=== PATIENT | male | born 1935 | race Caucasian/White ===

== ENCOUNTER 2017-12-12 09:46 | Outpatient (CLI) | payer MEDICARE ==
--- NOTE | 2017-12-12 12:34 | MRI ---
MRI LUMBAR SPINE WITHOUT CONTRAST: HISTORY: Left-sided sciatica. Low back pain x several years. COMPARISON: None. TECHNIQUE: MRI of the lumbar spine is performed without intravenous Gadolinium administration. Multisequential, multiplanar imaging is performed. FINDINGS: Evaluation is limited by motion degradation on multiple sequences. Symmetric signal intensity of the psoas muscles. 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 Overall, there is appropriate T1 marrow signal intensity of the lumbar vertebrae. Slightly heterogen eous marrow signal intensity of the anterior superior aspect of L2 likely represents a small vertebra l body hemangioma. No evidence of fracture. No significant STIR hyperintensity to suggest ligamento us injury. There is evidence of type I Modic change involving the left inferior end plate at L1, sup erior left end plate at L2, as well as edema involving the posterior elements on the left at L1 and L 2. Conus medullaris terminates at the superior aspect of L1. T12-L1: No significant central canal stenosis. Moderate right neural foramen is patent. Probable m oderate left foraminal narrowing. L1-L2: Mild disk desiccation without significant loss of disk space height or significant posterior disk abnormality. No significant central canal stenosis. Neural foramen appear to be patent bilater ally. L2-L3: Mild loss of disk space height. Generalized disk bulge with left paracentral component. Dis k material abuts but does not obscure the traversing left L2 nerve root. Mild posterior element hype rtrophy. Overall mild central canal stenosis. Mild right and mild to moderate left foraminal narrow ing. L3-L4: Desiccation without significant loss of disk space height. Small right paracentral disk bulg e. Disk material abuts but does not completely obscure the traversing left L4 nerve root. There is mild ligamentum flavum thickening and facet hypertrophy. A small amount of fluid in both intraarticu lar facet joints. No significant central canal stenosis. Neural foramen are patent bilaterally. L4-L5: Desiccation without significant loss of disk space height. There is a generalized disk bulge without significant central canal stenosis. A small amount of fluid in both intraarticular facet christy ints. Mild to moderate right and minimal left foraminal narrowing. L5-S1: Disk desiccation with moderate loss of disk space height. Generalized disk bulge narrows bot h subarticular zones. Mass effect without obscuration of either traversing S1 nerve root. Mild cent ral canal stenosis. There is bilateral facet hypertrophy, right greater than left. Mild bilateral f oraminal narrowing. 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 POS: OFF
== END 2017-12-12 09:47 | disposition home or self-care (01) ==
LOC: TBSIIMAG 09:46 → EDBD 11:00
PROVIDERS: ATTEND Family Medicine
DX: M54.32 Sciatica, left side (principal); M47.896 Other spondylosis, lumbar region
CPT/HCPCS: 72148

== ENCOUNTER 2020-12-12 13:47 | Inpatient (IN) | payer MEDICARE ==
[2020-12-12] MEDS ORDERED: Pantoprazole 40 MG VIAL ONE (16:28)
[2020-12-12 16:29] LABS: #Eosinphils 0.2 thou/uL (0.0-0.7); #Lymphocytes 1.1 thou/uL (1.20-3.40); #Monocytes 0.8 thou/uL (0.11-0.59); #Neutrophils 7.9 thou/uL (1.40-6.50); %Basophils 0.1 % (0.0-1.0); %Eosinophils 1.6 % (0.0-10.0); %Lymphocytes 11.2 % (21.0-51.0); %Monocytes 7.7 % (0.0-10.0); %Neutrophils 79.4 % (42.0-75.0); Hemoglobin 10.7 g/dL (14.0-18.0); Mean Corpuscular HGB CONC 33.5 g/dL (32.0-36.0); Mean Corpuscular Hemoglobin 33.7 pg (27.0-31.0); Mean Platelet Volume 9.1 fL (7.4-10.4); Platelet Count 147 thou/uL (130-400); RBC Distribution Width 13.9 % (11.5-14.5); Red Blood Cell (RBC) Count 3.17 mill/uL (4.70-6.10); White Blood Cell (WBC) Count 9.9 thou/uL (4.8-10.8)
[2020-12-12 16:36] LABS: INR-International Normal Ratio 3.2; Prothrombin Time 33.4 sec (12.0-14.7)
[2020-12-12 16:37] LABS: D-Dimer Test 0.8 *mcg/mL (0.27-0.43); PTT 61.1 sec (22.9-36.1)
[2020-12-12] MEDS ORDERED: Furosemide 40 MG/4 ML VIAL ONE (17:07)
[2020-12-12 17:15] LABS: CKMB 5.3 ng/mL (0-6.6)
[2020-12-12 17:43] LABS: Troponin I 0.095 ng/mL (< 0.028)
[2020-12-12] MEDS ORDERED: Ondansetron ODT 4 MG TAB PO PRN (17:52)
[2020-12-12] MEDS ORDERED: Ondansetron PF 4 MG/2 ML Vial IVP PRN (17:52)
[2020-12-12 18:34] LABS: ALT (SGPT) 26 U/L (8-55); AST (SGOT) 37 U/L (5-34); Albumin 2.9 g/dL (3.4-4.8); Alkaline Phosphatase 107 U/L (40-110); Anion Gap 12 mmol/L (10-20); BUN (Urea Nitrogen) 28 mg/dL (8.4-25.7); Calc. Creatinine Clearance 0 mL/min (70-130); Calcium 8.4 mg/dL (7.8-10.44); Carbon Dioxide 23 mmol/L (23-31); Chloride 105 mmol/L (98-107); Globulin 3.4 g/dL (2.4-3.5); Glucose 93 mg/dL (83-110); Lipase 44 U/L (8-78); Potassium 3.4 mmol/L (3.5-5.1); Protein, Total 6.3 g/dL (5.8-8.1); Sodium 137 mmol/L (136-145)
[2020-12-12 20:25] LABS: Troponin I 0.089 ng/mL (< 0.028)
[2020-12-12] MEDS: Pregabalin 50 MG CAP PO SCH (20:49)
[2020-12-12] MEDS: Atorvastatin Calcium 40 MG TAB PO SCH (20:49)
[2020-12-12] MEDS: HYDROcodone/Acetaminophen 5/325 mg Tablet PO PRN (23:46)
[2020-12-13 04:53] LABS: INR-International Normal Ratio 3.8; Prothrombin Time 38.5 sec (12.0-14.7)
[2020-12-13] MEDS: Acetaminophen 325 MG TAB PO PRN (04:54)
[2020-12-13] MEDS: Furosemide 40 MG/4 ML VIAL SLOW IVP SCH ×2 (05:04→14:57)
[2020-12-13 05:10] LABS: Anion Gap 15 mmol/L (10-20); BUN (Urea Nitrogen) 25 mg/dL (8.4-25.7); Calc. Creatinine Clearance 36 mL/min (70-130); Calcium 8.2 mg/dL (7.8-10.44); Carbon Dioxide 21 mmol/L (23-31); Chloride 104 mmol/L (98-107); Glucose 92 mg/dL (83-110); Potassium 3.5 mmol/L (3.5-5.1); Sodium 136 mmol/L (136-145)
[2020-12-13 05:17] LABS: Hemoglobin 10.5 g/dL (14.0-18.0); Mean Corpuscular HGB CONC 35.3 g/dL (32.0-36.0); Mean Corpuscular Hemoglobin 35.3 pg (27.0-31.0); Mean Corpuscular Volume 99.9 fL (78.0-98.0); Mean Platelet Volume 9.3 fL (7.4-10.4); Platelet Count 155 thou/uL (130-400); RBC Distribution Width 14.6 % (11.5-14.5); Red Blood Cell (RBC) Count 2.98 mill/uL (4.70-6.10); White Blood Cell (WBC) Count 12.4 thou/uL (4.8-10.8)
[2020-12-13 05:18] LABS: Band 48 % (5-11); Eosinophils 1 % (0-10); Lymphocytes 8 % (21-51); MDiff Complete? YES; Monocytes 2 % (0-10); Neutrophil 41 % (42-75); Platelet Morphology Comment Appears Adequate; Reflex for Review?? NO
[2020-12-13] MEDS: Allopurinol 300 MG TAB PO SCH (09:40)
[2020-12-13] MEDS: Pregabalin 50 MG CAP PO SCH ×2 (09:40→20:23)
[2020-12-13] MEDS: HYDROcodone/Acetaminophen 5/325 mg Tablet PO PRN (13:07)
[2020-12-13] MEDS: Metoprolol Tartrate 5 MG/5 ML VIAL IVP PRN (13:11)
[2020-12-13 14:43] LABS: Actual Bicarbonate (HCO3a) 24.9 mEq/L (22-28); Base Excess (BEa) 3.2 mEq/L (-2.0 to +3.0); Calcium, Ionized (arterial) 1.06 mmol/L (1.12-1.30); Carboxyhemoglobin (COHb) 0.3 gm% (0.0-3.0); Hemoglobin (Hb) 11.7 g/dL (14.0-18.0); Potassium - ABG Lab 3.06 mmol/L (3.70-5.30)
[2020-12-13 14:53] LABS: O2 Tension (PaO2), arterial 56.6 mmHg (> 60.0); Puncture Site RRA; pH, Arterial 7.55 (7.35-7.45)
[2020-12-13] MEDS: cefTRIAXone\\ROCEPHIN 1 GM in Sodium Chloride 0.9% 100 ML IVPB SCH (15:00)
[2020-12-13 19:34] LABS: Bilirubin Negative (Negative); Blood, Urine Negative (Negative); Clarity Clear (Clear); Glucose, Urine (Dipstick) Normal (Negative); Ketone, Urine Negative (Negative); Leukocyte 25 Leu/uL (Negative); Nitrite Negative (Negative); Protein, Urine (Dipstick) Negative (Neg-Trace); Specific Gravity, Urine 1.009 (1.002-1.036); Urobilinogen Normal mg/dL (Less than 2); pH, Urine 6.5 (5.0-9.0)
[2020-12-13] MEDS: Atorvastatin Calcium 40 MG TAB PO SCH (20:23)
[2020-12-14 04:34] LABS: #Eosinphils 0.2 thou/uL (0.0-0.7); #Lymphocytes 1.5 thou/uL (1.20-3.40); #Monocytes 0.8 thou/uL (0.11-0.59); #Neutrophils 8.7 thou/uL (1.40-6.50); %Basophils 0.1 % (0.0-1.0); %Eosinophils 1.5 % (0.0-10.0); %Lymphocytes 13.2 % (21.0-51.0); %Monocytes 6.8 % (0.0-10.0); %Neutrophils 78.3 % (42.0-75.0); Mean Corpuscular HGB CONC 33.6 g/dL (32.0-36.0); Mean Corpuscular Hemoglobin 33.4 pg (27.0-31.0); Mean Corpuscular Volume 99.3 fL (78.0-98.0); Mean Platelet Volume 9.1 fL (7.4-10.4); Platelet Count 177 thou/uL (130-400); RBC Distribution Width 14.3 % (11.5-14.5); White Blood Cell (WBC) Count 11.1 thou/uL (4.8-10.8)
[2020-12-14 04:35] LABS: INR-International Normal Ratio 2.6; Prothrombin Time 28.6 sec (12.0-14.7)
[2020-12-14 04:40] VITALS: BMI 20.1
[2020-12-14 04:51] LABS: Anion Gap 15 mmol/L (10-20); BUN (Urea Nitrogen) 20 mg/dL (8.4-25.7); Calc. Creatinine Clearance 39 mL/min (70-130); Calcium 8.6 mg/dL (7.8-10.44); Carbon Dioxide 21 mmol/L (23-31); Chloride 100 mmol/L (98-107); Glucose 92 mg/dL (83-110); Potassium 3.5 mmol/L (3.5-5.1); Sodium 132 mmol/L (136-145)
[2020-12-14] MEDS: Metoprolol Tartrate 5 MG/5 ML VIAL IVP PRN (05:59)
[2020-12-14] MEDS: Furosemide 40 MG/4 ML VIAL SLOW IVP SCH (06:32)
[2020-12-14] MEDS ORDERED: Sodium Chloride 0.9% (PF) 10 ML VIAL FS PRN (09:30)
[2020-12-14] MEDS ORDERED: Pantoprazole 40 MG VIAL IVP SCH (09:30)
[2020-12-14] MEDS ORDERED: Phytonadione 10 MG/ML AMP PO SCH (09:30)
[2020-12-14] MEDS ORDERED: Sodium Chloride 0.9% (PF) 10 ML VIAL FS SCH (09:30)
[2020-12-14] MEDS: Allopurinol 300 MG TAB PO SCH (09:32)
[2020-12-14] MEDS: Acetaminophen 325 MG TAB PO PRN (09:33)
[2020-12-14] MEDS: Pregabalin 50 MG CAP PO SCH ×2 (09:35→20:37)
[2020-12-14] MEDS ORDERED: Iopamidol-370 76% 500 ML 1 ML ONE (11:19)
[2020-12-14 12:09] LABS: Hemoglobin 10.5 g/dL (14.0-18.0)
[2020-12-14] MEDS: Bumetanide 1 MG/4 ML VIAL IVP SCH (15:26)
[2020-12-14] MEDS: cefTRIAXone\\ROCEPHIN 1 GM in Sodium Chloride 0.9% 100 ML IVPB SCH (15:57)
[2020-12-14] MEDS ORDERED: Warfarin Sodium 2 MG TAB PO SCH (17:00)
[2020-12-14 18:05] LABS: Hemoglobin 10.6 g/dL (14.0-18.0)
[2020-12-14] MEDS: Atorvastatin Calcium 40 MG TAB PO SCH (20:37)
[2020-12-14] MEDS: Pantoprazole 40 MG VIAL IVP SCH (20:37)
[2020-12-15 00:22] LABS: Hemoglobin 10.3 g/dL (14.0-18.0)
[2020-12-15] MEDS: HYDROcodone/Acetaminophen 5/325 mg Tablet PO PRN ×3 (03:34→22:46)
[2020-12-15 06:06] LABS: #Eosinphils 0.5 thou/uL (0.0-0.7); #Lymphocytes 1.1 thou/uL (1.20-3.40); #Monocytes 0.6 thou/uL (0.11-0.59); #Neutrophils 5.1 thou/uL (1.40-6.50); %Basophils 0.3 % (0.0-1.0); %Eosinophils 6.9 % (0.0-10.0); %Lymphocytes 14.4 % (21.0-51.0); %Monocytes 8.1 % (0.0-10.0); %Neutrophils 70.4 % (42.0-75.0); Hemoglobin 11.1 g/dL (14.0-18.0); Mean Corpuscular HGB CONC 32.4 g/dL (32.0-36.0); Mean Corpuscular Hemoglobin 32.2 pg (27.0-31.0); Mean Corpuscular Volume 99.3 fL (78.0-98.0); Mean Platelet Volume 8.8 fL (7.4-10.4); Platelet Count 197 thou/uL (130-400); RBC Distribution Width 13.9 % (11.5-14.5); Red Blood Cell (RBC) Count 3.46 mill/uL (4.70-6.10); White Blood Cell (WBC) Count 7.3 thou/uL (4.8-10.8)
[2020-12-15 06:12] LABS: INR-International Normal Ratio 1.5; PTT 42.1 sec (22.9-36.1)
[2020-12-15] MEDS: Bumetanide 1 MG/4 ML VIAL IVP SCH ×2 (06:21→14:09)
[2020-12-15 06:24] LABS: Anion Gap 13 mmol/L (10-20); BUN (Urea Nitrogen) 18 mg/dL (8.4-25.7); Calc. Creatinine Clearance 43 mL/min (70-130); Calcium 8.5 mg/dL (7.8-10.44); Carbon Dioxide 24 mmol/L (23-31); Chloride 104 mmol/L (98-107); Glucose 118 mg/dL (83-110); Sodium 138 mmol/L (136-145)
[2020-12-15 06:35] LABS: Potassium 2.9 mmol/L (3.5-5.1)
[2020-12-15] MEDS: Pregabalin 50 MG CAP PO SCH ×2 (08:21→20:00)
[2020-12-15] MEDS: Allopurinol 300 MG TAB PO SCH (08:21)
[2020-12-15] MEDS: Pantoprazole 40 MG VIAL IVP SCH ×2 (08:21→20:01)
[2020-12-15] MEDS ORDERED: Potassium Chloride 20 MEQ TAB PO SCH (09:00)
[2020-12-15] MEDS: Acetaminophen 325 MG TAB PO PRN (14:09)
[2020-12-15] MEDS: cefTRIAXone\\ROCEPHIN 1 GM in Sodium Chloride 0.9% 100 ML IVPB SCH (15:58)
[2020-12-15] MEDS: Atorvastatin Calcium 40 MG TAB PO SCH (19:59)
[2020-12-16 05:31] LABS: INR-International Normal Ratio 1.2; Prothrombin Time 15.9 sec (12.0-14.7)
[2020-12-16 05:32] LABS: PTT 41.1 sec (22.9-36.1)
[2020-12-16 05:49] LABS: Anion Gap 16 mmol/L (10-20); BUN (Urea Nitrogen) 20 mg/dL (8.4-25.7); Calc. Creatinine Clearance 45 mL/min (70-130); Carbon Dioxide 20 mmol/L (23-31); Chloride 104 mmol/L (98-107); Glucose 81 mg/dL (83-110); Potassium 3.8 mmol/L (3.5-5.1); Sodium 136 mmol/L (136-145)
[2020-12-16] MEDS: Bumetanide 1 MG/4 ML VIAL IVP SCH ×2 (06:05→14:38)
[2020-12-16] MEDS: HYDROcodone/Acetaminophen 5/325 mg Tablet PO PRN (06:05)
[2020-12-16] MEDS ORDERED: Potassium Chloride 10 MEQ TAB PO SCH (09:00)
[2020-12-16] MEDS: Pregabalin 50 MG CAP PO SCH (09:17)
[2020-12-16] MEDS: Allopurinol 300 MG TAB PO SCH (09:19)
[2020-12-16] MEDS: Pantoprazole 40 MG VIAL IVP SCH (09:20)
[2020-12-16 12:46] VITALS: BP 135/88; TEMP 97.2
[2020-12-16] MEDS ORDERED: Apixaban 5 MG TAB PO SCH (21:00)
[2020-12-17] MEDS ORDERED: Aspirin 81 mg Enteric Coated Tablet PO SCH (09:00)
[2020-12-17] MEDS ORDERED: Apixaban 5 MG TAB PO SCH (09:00)
== END 2020-12-16 14:41 | disposition home health service (06) | DRG 280 ==
LOC: ERS 13:47 → 2NO 16:49
PROVIDERS: ADMIT Hospitalist; ATTEND Internal Medicine
DX: I13.0 Hypertensive heart and chronic kidney disease with heart failure and stage 1 through stage 4 chronic kidney disease, or unspecified chronic kidney disease (principal); J18.9 Pneumonia, unspecified organism; I21.A1 Myocardial infarction type 2; I50.33 Acute on chronic diastolic (congestive) heart failure; I48.11 Longstanding persistent atrial fibrillation; N18.30 Chronic kidney disease, stage 3 unspecified; Z20.822 Contact with and (suspected) exposure to COVID-19; Z51.5 Encounter for palliative care; I25.10 Atherosclerotic heart disease of native coronary artery without angina pectoris; I73.9 Peripheral vascular disease, unspecified; G54.6 Phantom limb syndrome with pain; K21.9 Gastro-esophageal reflux disease without esophagitis; Z95.5 Presence of coronary angioplasty implant and graft; Z95.2 Presence of prosthetic heart valve; Z89.511 Acquired absence of right leg below knee; Z79.01 Long term (current) use of anticoagulants; Z79.899 Other long term (current) drug therapy
CPT/HCPCS: 36415; 36600; 71045; 71275; 80048; 81003; 82553; 82805; 83690; 83880; 85025; 85379; 85610; 85652; 85730; 86140; 87086; 93005; 93306; 96374; 96375; C9113; J0696; J1940; J3430; J3490; Q0162; Q9967

== ENCOUNTER 2021-07-18 10:09 | Inpatient (IN) | payer MEDICARE ==
[2021-07-18] MEDS ORDERED: Acetaminophen 500 MG TAB ONE (10:30)
[2021-07-18] MEDS ORDERED: Vancomycin 1.5 GRAM/300 ML BAG 1.5 GM in Premix Bag 1 BAG IVPB SCH (12:15)
[2021-07-18] MEDS ORDERED: Iopamidol-370 76% 500 ML 1 ML ONE (12:31)
[2021-07-18] MEDS ORDERED: Ondansetron PF 4 MG/2 ML Vial IVP PRN (12:33)
[2021-07-18 13:43] LABS: SARS-CoV-2 NAA Rapid Test Not Detected (NotDetected)
[2021-07-18] MEDS ORDERED: Furosemide 40 MG/4 ML VIAL SLOW IVP SCH (13:45)
[2021-07-18] MEDS ORDERED: Piperacillin/Tazobactam 3.375 GM in Sodium Chloride 0.9% 100 ML IVPB SCH (14:00)
[2021-07-18 14:03] LABS: Band 44 % (5-11); Burr Cells SLIGHT = 2-5 cells (100X) (0-1/hpf); Hemoglobin 10.7 g/dL (14.0-18.0); Lymphocytes 3 % (21-51); MDiff Complete? YES; Mean Corpuscular HGB CONC 34.2 g/dL (32.0-36.0); Mean Corpuscular Hemoglobin 33.4 pg (27.0-31.0); Mean Corpuscular Volume 97.6 fL (78.0-98.0); Mean Platelet Volume 8.2 fL (7.4-10.4); Monocytes 1 % (0-10); Neutrophil 52 % (42-75); Platelet Count 163 thou/uL (130-400); Platelet Morphology Comment Appears Adequate; Polychromasia SLIGHT = 2-3 cells (100X) (0-2/hpf); RBC Distribution Width 14.4 % (11.5-14.5); Red Blood Cell (RBC) Count 3.22 mill/uL (4.70-6.10)
[2021-07-18 14:35] LABS: ALT (SGPT) 32 U/L (8-55); AST (SGOT) 50 U/L (5-34); Albumin 3.1 g/dL (3.4-4.8); Alkaline Phosphatase 146 U/L (40-110); Anion Gap 16 mmol/L (10-20); BUN (Urea Nitrogen) 23 mg/dL (8.4-25.7); Bilirubin, Total 0.7 mg/dL (0.2-1.2); Calc. Creatinine Clearance 0 mL/min (70-130); Calcium 8.1 mg/dL (7.8-10.44); Carbon Dioxide 16 mmol/L (23-31); Chloride 110 mmol/L (98-107); Globulin 2.6 g/dL (2.4-3.5); Glucose 81 mg/dL (83-110); Potassium 3.5 mmol/L (3.5-5.1); Protein, Total 5.7 g/dL (5.8-8.1); Sodium 138 mmol/L (136-145)
[2021-07-18] MEDS ORDERED: Diltiazem 125 MG/25 ML ONE (15:48)
[2021-07-18 17:28] VITALS: BMI 19.8
[2021-07-18] MEDS: Piperacillin/Tazobactam 3.375 GM in Sodium Chloride 0.9% 100 ML IVPB SCH (17:46)
[2021-07-18] MEDS: Diltiazem 125 MG in Sodium Chloride 0.9% 100 ML IVPB SCH (22:40)
[2021-07-19] MEDS: Piperacillin/Tazobactam 3.375 GM in Sodium Chloride 0.9% 100 ML IVPB SCH ×3 (02:45→17:18)
[2021-07-19] MEDS: Diltiazem 125 MG in Sodium Chloride 0.9% 100 ML IVPB SCH ×2 (06:46→16:47)
[2021-07-19] MEDS: Aspirin 81 mg Enteric Coated Tablet PO SCH (10:37)
[2021-07-19] MEDS: Apixaban 5 MG TAB PO SCH ×2 (10:37→20:42)
[2021-07-19] MEDS ORDERED: Furosemide 20 MG/2 ML VIAL SLOW IVP SCH (11:00)
[2021-07-19] MEDS: traMADol HCl 50 MG TAB PO PRN (16:46)
[2021-07-19] MEDS: Atorvastatin Calcium 40 MG TAB PO SCH (20:42)
[2021-07-20] MEDS: Piperacillin/Tazobactam 3.375 GM in Sodium Chloride 0.9% 100 ML IVPB SCH ×3 (02:45→18:12)
[2021-07-20 05:31] LABS: #Eosinphils 0.2 thou/uL (0.0-0.7); #Lymphocytes 1.1 thou/uL (1.20-3.40); #Monocytes 0.6 thou/uL (0.11-0.59); %Basophils 0.2 % (0.0-1.0); %Eosinophils 1.5 % (0.0-10.0); %Lymphocytes 8.7 % (21.0-51.0); %Monocytes 4.8 % (0.0-10.0); %Neutrophils 84.9 % (42.0-75.0); Hemoglobin 10.8 g/dL (14.0-18.0); Mean Corpuscular Hemoglobin 33.6 pg (27.0-31.0); Mean Corpuscular Volume 98.9 fL (78.0-98.0); Mean Platelet Volume 8.6 fL (7.4-10.4); Platelet Count 218 thou/uL (130-400); RBC Distribution Width 14.9 % (11.5-14.5); Red Blood Cell (RBC) Count 3.21 mill/uL (4.70-6.10); White Blood Cell (WBC) Count 12.9 thou/uL (4.8-10.8)
[2021-07-20 05:38] LABS: Anion Gap 17 mmol/L (10-20); BUN (Urea Nitrogen) 27 mg/dL (8.4-25.7); Calc. Creatinine Clearance 34 mL/min (70-130); Calcium 8.8 mg/dL (7.8-10.44); Carbon Dioxide 16 mmol/L (23-31); Chloride 111 mmol/L (98-107); Glucose 88 mg/dL (83-110); Potassium 3.5 mmol/L (3.5-5.1); Sodium 140 mmol/L (136-145)
[2021-07-20] MEDS: Aspirin 81 mg Enteric Coated Tablet PO SCH (08:21)
[2021-07-20] MEDS: Apixaban 5 MG TAB PO SCH (08:21)
[2021-07-20] MEDS: traMADol HCl 50 MG TAB PO PRN (08:24)
[2021-07-20] MEDS: Atorvastatin Calcium 40 MG TAB PO SCH (20:50)
[2021-07-21] MEDS: Diltiazem 125 MG in Sodium Chloride 0.9% 100 ML IVPB SCH ×2 (00:51→17:04)
[2021-07-21] MEDS: Piperacillin/Tazobactam 3.375 GM in Sodium Chloride 0.9% 100 ML IVPB SCH ×3 (03:10→17:03)
[2021-07-21 04:58] LABS: #Eosinphils 0.3 thou/uL (0.0-0.7); #Lymphocytes 1.2 thou/uL (1.20-3.40); #Monocytes 0.4 thou/uL (0.11-0.59); #Neutrophils 6.8 thou/uL (1.40-6.50); %Basophils 0.2 % (0.0-1.0); %Eosinophils 2.9 % (0.0-10.0); %Lymphocytes 13.7 % (21.0-51.0); %Monocytes 5.1 % (0.0-10.0); %Neutrophils 78.1 % (42.0-75.0); Hemoglobin 11.2 g/dL (14.0-18.0); Mean Corpuscular Hemoglobin 35.2 pg (27.0-31.0); Platelet Count 240 thou/uL (130-400); RBC Distribution Width 15.3 % (11.5-14.5); Red Blood Cell (RBC) Count 3.18 mill/uL (4.70-6.10); White Blood Cell (WBC) Count 8.7 thou/uL (4.8-10.8)
[2021-07-21 05:20] LABS: Anion Gap 16 mmol/L (10-20); BUN (Urea Nitrogen) 22 mg/dL (8.4-25.7); Calc. Creatinine Clearance 42 mL/min (70-130); Calcium 8.8 mg/dL (7.8-10.44); Carbon Dioxide 16 mmol/L (23-31); Chloride 112 mmol/L (98-107); Glucose 88 mg/dL (83-110); Potassium 3.4 mmol/L (3.5-5.1); Sodium 141 mmol/L (136-145)
[2021-07-21] MEDS: Aspirin 81 mg Enteric Coated Tablet PO SCH (09:27)
[2021-07-21] MEDS ORDERED: Potassium Chloride 20 MEQ TAB PO SCH (12:30)
[2021-07-21] MEDS: traMADol HCl 50 MG TAB PO PRN (15:21)
[2021-07-21] MEDS: Atorvastatin Calcium 40 MG TAB PO SCH (21:02)
[2021-07-22] MEDS: traMADol HCl 50 MG TAB PO PRN ×2 (01:18→06:23)
[2021-07-22] MEDS: Piperacillin/Tazobactam 3.375 GM in Sodium Chloride 0.9% 100 ML IVPB SCH ×3 (02:16→18:11)
[2021-07-22 05:41] LABS: Anion Gap 13 mmol/L (10-20); BUN (Urea Nitrogen) 17 mg/dL (8.4-25.7); Calc. Creatinine Clearance 41 mL/min (70-130); Carbon Dioxide 19 mmol/L (23-31); Chloride 112 mmol/L (98-107); Glucose 71 mg/dL (83-110); Potassium 3.7 mmol/L (3.5-5.1); Sodium 140 mmol/L (136-145)
[2021-07-22 05:59] LABS: Hemoglobin 11.5 g/dL (14.0-18.0); Mean Corpuscular HGB CONC 32.7 g/dL (32.0-36.0); Mean Corpuscular Hemoglobin 32.9 pg (27.0-31.0); Mean Platelet Volume 8.1 fL (7.4-10.4); Platelet Count 290 thou/uL (130-400); RBC Distribution Width 14.5 % (11.5-14.5); White Blood Cell (WBC) Count 10.3 thou/uL (4.8-10.8)
[2021-07-22 06:59] LABS: Anisocytosis SLIGHT = 6-15 cells (100X) (0-5/hpf); Band 9 % (5-11); Elliptocytes SLIGHT = 2-5 cells (100X) (0-1/hpf); Eosinophils 1 % (0-10); Lymphocytes 17 % (21-51); MDiff Complete? YES; Monocytes 1 % (0-10); Neutrophil 71 % (42-75)
[2021-07-22] MEDS: Diltiazem 125 MG in Sodium Chloride 0.9% 100 ML IVPB SCH (08:32)
[2021-07-22] MEDS: Aspirin 81 mg Enteric Coated Tablet PO SCH (08:32)
[2021-07-22] MEDS: Atorvastatin Calcium 40 MG TAB PO SCH (21:43)
[2021-07-23] MEDS: Piperacillin/Tazobactam 3.375 GM in Sodium Chloride 0.9% 100 ML IVPB SCH ×3 (02:08→17:29)
[2021-07-23 04:42] LABS: #Eosinphils 0.1 thou/uL (0.0-0.7); #Lymphocytes 1.3 thou/uL (1.20-3.40); #Monocytes 0.6 thou/uL (0.11-0.59); #Neutrophils 5.9 thou/uL (1.40-6.50); %Basophils 0.4 % (0.0-1.0); %Eosinophils 1.8 % (0.0-10.0); %Lymphocytes 16.5 % (21.0-51.0); %Monocytes 7.6 % (0.0-10.0); %Neutrophils 73.7 % (42.0-75.0); Hemoglobin 11.9 g/dL (14.0-18.0); Mean Corpuscular HGB CONC 35.9 g/dL (32.0-36.0); Mean Corpuscular Hemoglobin 35.4 pg (27.0-31.0); Mean Corpuscular Volume 98.7 fL (78.0-98.0); Mean Platelet Volume 7.7 fL (7.4-10.4); Platelet Count 313 thou/uL (130-400); RBC Distribution Width 14.9 % (11.5-14.5); Red Blood Cell (RBC) Count 3.35 mill/uL (4.70-6.10)
[2021-07-23 05:05] LABS: Anion Gap 21 mmol/L (10-20); BUN (Urea Nitrogen) 19 mg/dL (8.4-25.7); Calc. Creatinine Clearance 42 mL/min (70-130); Calcium 9.2 mg/dL (7.8-10.44); Carbon Dioxide 13 mmol/L (23-31); Chloride 113 mmol/L (98-107); Glucose 64 mg/dL (83-110); Sodium 143 mmol/L (136-145)
[2021-07-23] MEDS ORDERED: Dextrose 50% Abboject 50 ML SYRINGE ONE (06:59)
[2021-07-23] MEDS ORDERED: Diltiazem HCl SR 60 mg Capsule PO SCH (10:00)
[2021-07-23] MEDS: Aspirin 81 mg Enteric Coated Tablet PO SCH (11:02)
[2021-07-23] MEDS: Diltiazem 125 MG in Sodium Chloride 0.9% 100 ML IVPB SCH (14:39)
[2021-07-23] MEDS: Bumetanide 1 MG/4 ML VIAL IVP SCH (14:49)
[2021-07-23] MEDS: Atorvastatin Calcium 40 MG TAB PO SCH (20:36)
[2021-07-24] MEDS: Piperacillin/Tazobactam 3.375 GM in Sodium Chloride 0.9% 100 ML IVPB SCH (01:32)
[2021-07-24 04:44] LABS: #Eosinphils 0.1 thou/uL (0.0-0.7); #Lymphocytes 1.2 thou/uL (1.20-3.40); #Monocytes 0.6 thou/uL (0.11-0.59); #Neutrophils 5.7 thou/uL (1.40-6.50); %Basophils 0.2 % (0.0-1.0); %Eosinophils 1.7 % (0.0-10.0); %Lymphocytes 15.8 % (21.0-51.0); %Monocytes 7.9 % (0.0-10.0); %Neutrophils 74.3 % (42.0-75.0); Hemoglobin 11.3 g/dL (14.0-18.0); Mean Corpuscular HGB CONC 33.1 g/dL (32.0-36.0); Mean Corpuscular Hemoglobin 32.5 pg (27.0-31.0); Mean Corpuscular Volume 98.2 fL (78.0-98.0); Mean Platelet Volume 7.1 fL (7.4-10.4); Platelet Count 344 thou/uL (130-400); RBC Distribution Width 14.9 % (11.5-14.5); Red Blood Cell (RBC) Count 3.49 mill/uL (4.70-6.10); White Blood Cell (WBC) Count 7.6 thou/uL (4.8-10.8)
[2021-07-24 05:04] LABS: Anion Gap 17 mmol/L (10-20); BUN (Urea Nitrogen) 18 mg/dL (8.4-25.7); Calc. Creatinine Clearance 45 mL/min (70-130); Calcium 9.6 mg/dL (7.8-10.44); Carbon Dioxide 18 mmol/L (23-31); Chloride 111 mmol/L (98-107); Glucose 87 mg/dL (83-110); Potassium 3.4 mmol/L (3.5-5.1); Sodium 143 mmol/L (136-145)
[2021-07-24] MEDS: Bumetanide 1 MG/4 ML VIAL IVP SCH ×2 (05:47→15:54)
[2021-07-24] MEDS ORDERED: Furosemide 40 MG/4 ML VIAL SLOW IVP SCH (09:30)
[2021-07-24] MEDS: Aspirin 81 mg Enteric Coated Tablet PO SCH (09:42)
[2021-07-24] MEDS: Potassium Chloride 20 MEQ TAB PO SCH ×2 (11:07→11:39)
[2021-07-24] MEDS: Diltiazem 125 MG in Sodium Chloride 0.9% 100 ML IVPB SCH (19:26)
[2021-07-24] MEDS ORDERED: Diltiazem 125 MG in Sodium Chloride 0.9% 100 ML IVPB SCH (20:15)
[2021-07-24] MEDS ORDERED: Enoxaparin Sodium 60 MG/0.6 ML SYRINGE SC SCH (21:00)
[2021-07-24] MEDS: Atorvastatin Calcium 40 MG TAB PO SCH (21:15)
[2021-07-24] MEDS ORDERED: Ketorolac Tromethamine 30 MG/ML VIAL IVP SCH (21:45)
[2021-07-25 04:52] LABS: #Eosinphils 0.1 thou/uL (0.0-0.7); #Lymphocytes 1.2 thou/uL (1.20-3.40); #Monocytes 0.6 thou/uL (0.11-0.59); #Neutrophils 4.9 thou/uL (1.40-6.50); %Basophils 0.3 % (0.0-1.0); %Eosinophils 1.1 % (0.0-10.0); %Lymphocytes 17.7 % (21.0-51.0); %Monocytes 8.3 % (0.0-10.0); %Neutrophils 72.6 % (42.0-75.0); Hemoglobin 12.4 g/dL (14.0-18.0); Mean Corpuscular HGB CONC 34.3 g/dL (32.0-36.0); Mean Corpuscular Hemoglobin 33.7 pg (27.0-31.0); Mean Corpuscular Volume 98.4 fL (78.0-98.0); Mean Platelet Volume 7.4 fL (7.4-10.4); Platelet Count 406 thou/uL (130-400); RBC Distribution Width 15.5 % (11.5-14.5); Red Blood Cell (RBC) Count 3.69 mill/uL (4.70-6.10); White Blood Cell (WBC) Count 6.7 thou/uL (4.8-10.8)
[2021-07-25 05:12] LABS: Anion Gap 20 mmol/L (10-20); BUN (Urea Nitrogen) 30 mg/dL (8.4-25.7); Calc. Creatinine Clearance 32 mL/min (70-130); Calcium 9.8 mg/dL (7.8-10.44); Carbon Dioxide 22 mmol/L (23-31); Chloride 108 mmol/L (98-107); Glucose 89 mg/dL (83-110); Potassium 3.3 mmol/L (3.5-5.1); Sodium 147 mmol/L (136-145)
[2021-07-25] MEDS: Bumetanide 1 MG/4 ML VIAL IVP SCH (05:41)
[2021-07-25] MEDS: Aspirin 81 mg Enteric Coated Tablet PO SCH (09:10)
[2021-07-25] MEDS: Enoxaparin Sodium 60 MG/0.6 ML SYRINGE SC SCH (09:10)
[2021-07-25] MEDS ORDERED: D5 1/2 NS w/20 mEq KCL 1,000 ML IV SCH (11:45)
[2021-07-25] MEDS ORDERED: 1/2 NS w/KCL 20 mEq 1,000 ML IV SCH (11:45)
[2021-07-25] MEDS ORDERED: Carvedilol 6.25 MG TAB PO SCH (17:30)
[2021-07-25] MEDS ORDERED: Digoxin 0.5 MG/2 ML AMP SLOW IVP SCH (19:00)
[2021-07-25] MEDS: Atorvastatin Calcium 40 MG TAB PO SCH (20:29)
[2021-07-25 23:30] LABS: SARS-CoV-2 PCR by NAA Not Detected (NotDetected)
[2021-07-26 05:05] LABS: Anion Gap 17 mmol/L (10-20); BUN (Urea Nitrogen) 36 mg/dL (8.4-25.7); Calc. Creatinine Clearance 33 mL/min (70-130); Calcium 9.7 mg/dL (7.8-10.44); Carbon Dioxide 22 mmol/L (23-31); Chloride 113 mmol/L (98-107); Glucose 111 mg/dL (83-110); Potassium 3.8 mmol/L (3.5-5.1); Sodium 148 mmol/L (136-145)
[2021-07-26 05:07] LABS: #Basophils 0.1 thou/uL (0.0-0.2); #Eosinphils 0.1 thou/uL (0.0-0.7); #Monocytes 0.8 thou/uL (0.11-0.59); #Neutrophils 5.8 thou/uL (1.40-6.50); %Basophils 0.7 % (0.0-1.0); %Eosinophils 1.7 % (0.0-10.0); %Lymphocytes 12.5 % (21.0-51.0); %Monocytes 10.4 % (0.0-10.0); %Neutrophils 74.7 % (42.0-75.0); Hemoglobin 13.5 g/dL (14.0-18.0); Mean Corpuscular HGB CONC 34.8 g/dL (32.0-36.0); Mean Corpuscular Hemoglobin 33.9 pg (27.0-31.0); Mean Corpuscular Volume 97.3 fL (78.0-98.0); Mean Platelet Volume 7.4 fL (7.4-10.4); Platelet Count 359 thou/uL (130-400); RBC Distribution Width 14.6 % (11.5-14.5); Red Blood Cell (RBC) Count 3.99 mill/uL (4.70-6.10); White Blood Cell (WBC) Count 7.8 thou/uL (4.8-10.8)
[2021-07-26] MEDS ORDERED: Carvedilol 6.25 MG TAB PO SCH (08:00)
[2021-07-26] MEDS: Enoxaparin Sodium 60 MG/0.6 ML SYRINGE SC SCH ×2 (08:11→20:41)
[2021-07-26] MEDS: Aspirin 81 mg Enteric Coated Tablet PO SCH (08:16)
[2021-07-26] MEDS: Diltiazem 125 MG in Sodium Chloride 0.9% 100 ML IVPB SCH ×2 (09:59→20:41)
[2021-07-26] MEDS: Atorvastatin Calcium 40 MG TAB PO SCH (20:41)
[2021-07-27] MEDS: Aspirin 81 mg Enteric Coated Tablet PO SCH (09:13)
[2021-07-27] MEDS: Enoxaparin Sodium 60 MG/0.6 ML SYRINGE SC SCH ×2 (09:21→21:26)
[2021-07-27] MEDS: Diltiazem 125 MG in Sodium Chloride 0.9% 100 ML IVPB SCH (21:26)
[2021-07-27] MEDS: Atorvastatin Calcium 40 MG TAB PO SCH (21:27)
[2021-07-28] MEDS: Enoxaparin Sodium 60 MG/0.6 ML SYRINGE SC SCH (09:15)
[2021-07-28 16:36] VITALS: BP 158/87; TEMP 97.6
[2021-07-28] MEDS: Aspirin 81 mg Enteric Coated Tablet PO SCH (16:36)
== END 2021-07-28 18:40 | disposition hospice, home (50) | DRG 193 ==
LOC: ERS 10:09 → 2NO 12:37
PROVIDERS: ADMIT Internal Medicine; ATTEND Internal Medicine
DX: J13 Pneumonia due to Streptococcus pneumoniae (principal); J96.01 Acute respiratory failure with hypoxia; I50.43 Acute on chronic combined systolic (congestive) and diastolic (congestive) heart failure; K51.90 Ulcerative colitis, unspecified, without complications; I13.0 Hypertensive heart and chronic kidney disease with heart failure and stage 1 through stage 4 chronic kidney disease, or unspecified chronic kidney disease; I48.21 Permanent atrial fibrillation; N17.9 Acute kidney failure, unspecified; E87.0 Hyperosmolality and hypernatremia; R64 Cachexia; Z68.1 Body mass index [BMI] 19.9 or less, adult; Z20.822 Contact with and (suspected) exposure to COVID-19; Z51.5 Encounter for palliative care; Z66 Do not resuscitate; I25.10 Atherosclerotic heart disease of native coronary artery without angina pectoris; K21.9 Gastro-esophageal reflux disease without esophagitis; I73.9 Peripheral vascular disease, unspecified; I35.0 Nonrheumatic aortic (valve) stenosis; D50.9 Iron deficiency anemia, unspecified; E78.1 Pure hyperglyceridemia; M10.9 Gout, unspecified; R13.10 Dysphagia, unspecified; N18.32 Chronic kidney disease, stage 3b; Z79.01 Long term (current) use of anticoagulants; Z95.2 Presence of prosthetic heart valve; Z89.611 Acquired absence of right leg above knee; Z79.899 Other long term (current) drug therapy
CPT/HCPCS: 36415; 36416; 71045; 71275; 80048; 83605; 84145; 85025; 93005; 93306; 96365; 96366; 96374; J1160; J1650; J1885; J1940; J2543; J3370; J3480; J3490; Q9967; U0002; U0003; U0005